=== PATIENT | female | born 1995 | race Asian ===

== ENCOUNTER 2018-09-10 15:16 | Inpatient (IN) ==
[2018-09-10] MEDS ORDERED: BUTORPHANOL 1 MG/ML VIAL IV PRN (15:58)
[2018-09-10] MEDS ORDERED: ONDANSETRON 4 MG/2 ML VIAL IV PRN (15:58)
[2018-09-10] MEDS ORDERED: MEPERIDINE 25 MG/1 ML VIAL IV PRN (15:58)
[2018-09-10] MEDS ORDERED: DINOPROSTONE VAG GEL 10 MG SYRINGE VAG ONE (16:01)
[2018-09-10] MEDS: LACTATED RINGERS 1,000 ML IV SCH ×2 (16:30→22:22)
[2018-09-10 16:47] LABS: Basophils % 0.4 % (0.0-0.8); Eosinophils # 0.1 10*3/uL (0.0-0.87); Eosinophils % 1.1 % (0.00-10.9); Hematocrit 37.6 VOL% (35.7-47.0); Hemoglobin 11.8 GM/DL (12.0-16.0); Immature Granulocytes % 0.5 %; Immature Granulocytes Absolute 0.04 #; Lymphocytes # 1.2 10*3/uL (1.4-4.0); Lymphocytes % 14.7 % (21.3-54.2); Mean Corpuscular HGB Conc 31.4 GM/DL (32-36); Mean Corpuscular Volume 93.8 FL (87-102); Mean Platelet Volume 11.1 FL (9.6-12.0); Monocytes % 9.9 % (1.7-12.7); Neutrophils % 73.4 % (38.7-73.9); Platelet Count 191 T/CUMM (130-400); Red Blood Count 4.01 MC/CUMM (3.8-5.5); Red Cell Distribution Width 12.3 % (9.3-17.3); White Blood Count 8.1 T/CUMM (4-12)
[2018-09-10 17:08] LABS: Alanine Aminotransferase 16 U/L (13-56); Albumin 2.5 G/DL (3.4-5.0); Alkaline Phosphatase 215 U/L (45-117); Aspartate Amino Transferase 11 U/L (0-37); Bilirubin,Total < 0.39 MG/DL (0.2-1.0); Blood Urea Nitrogen 9 MG/DL (7-18); Calcium 8.2 MG/DL (8.5-10.1); Glucose 71 MG/DL (74-106); Total Protein 6.7 G/DL (6.4-8.3)
[2018-09-10 17:09] LABS: Osmolality,Calculated 271.7 MOS/KG (273-304); Uric Acid 3.7 MG/DL (2.6-6.0)
[2018-09-11] MEDS ORDERED: AMPICILLIN INJ 2,000 MG in SODIUM CHLORIDE 0.9% 100 ML IV ONE (00:01)
[2018-09-11] MEDS ORDERED: OXYTOCIN/LR 20 UNIT/1,000 ML BAG IV SCH ×2 (01:00→02:00)
[2018-09-11] MEDS ORDERED: AMPICILLIN INJ 1,000 MG in SODIUM CHLORIDE 0.9% 100 ML IV SCH (04:00)
[2018-09-11] MEDS ORDERED: CITRIC ACID/SODIUM CITRATE 30 ML UDCUP PO ONE (07:08)
[2018-09-11] MEDS ORDERED: PROMETHAZINE 25 MG/1 ML VIAL IM ONE (07:08)
[2018-09-11] MEDS ORDERED: ePHEDrine 50 MG/ML AMP IV PRN (07:08)
[2018-09-11] MEDS ORDERED: hydrOXYzine HCL 25 MG/1 ML VIAL IM PRN (07:08)
[2018-09-11] MEDS ORDERED: NALOXONE 0.4 MG/ML VIAL IV PRN (07:08)
[2018-09-11] MEDS ORDERED: FAMOTIDINE 20 MG/2 ML VIAL IV ONE (07:08)
[2018-09-11] MEDS ORDERED: diphenhydrAMINE 50 MG/1 ML VIAL IV PRN (07:08)
[2018-09-11] MEDS ORDERED: fentaNYL 2 MCG/ROPIV 0.2% EPID 100 ML EPIDURAL SCH (07:30)
[2018-09-11] MEDS ORDERED: miSOPROStol 200 MCG TABLET ONE (07:56)
[2018-09-11] MEDS ORDERED: TRANEXAMIC ACID 1,000 MG/10 ML VIAL ONE (07:56)
[2018-09-11] MEDS ORDERED: OXYTOCIN/LR 20 UNIT/1,000 ML BAG IV ONE (07:56)
[2018-09-11] MEDS ORDERED: CARBOPROST TROMETHAMINE 250 MCG/ML AMP IM ONE (07:57)
[2018-09-11] MEDS ORDERED: METHYLERGONOVINE 0.2 MG/1 ML AMP ONE (07:57)
[2018-09-11 09:05] LABS: Cord Venous Blood HCO3 21.3 MMOL/L; Cord Venous Blood PCO2 43.8 MMHG; Cord Venous Blood PO2 32.7 MMHG
[2018-09-11] MEDS ORDERED: BISACODYL 10 MG SUPP RECTAL PRN (13:06)
[2018-09-11] MEDS ORDERED: HYDROCORTISONE 2.5% RECTAL CREAM 30 GM TUBE TOP PRN (13:06)
[2018-09-11] MEDS ORDERED: ACETAMINOPHEN/CODEINE 300-30 MG TABLET PO PRN (13:06)
[2018-09-11] MEDS ORDERED: BENZOCAINE 20%/MENTHOL 0.5% SPRAY 56 GM CAN TOP PRN (13:06)
[2018-09-11] MEDS ORDERED: oxyCODONE/ACETAMINOPHEN 5-325 MG TABLET PO PRN ×2 (13:06)
[2018-09-11] MEDS ORDERED: RHO(D) IMMUNE GLOBULIN 300 MCG SYRINGE IM ONE (13:06)
[2018-09-11] MEDS ORDERED: WITCH HAZEL PADS 100/JAR TOP PRN (13:06)
[2018-09-11] MEDS ORDERED: MEASLES/MUMPS/RUBELLA VACCINE 0.5 ML VIAL SUBCUT ONE (13:06)
[2018-09-11] MEDS ORDERED: LANOLIN 50% CREAM 0.3 OZ TUBE TOP PRN (13:06)
[2018-09-11] MEDS ORDERED: DIPH/TET/ACEL PERT BOOSTER VACCINE 0.5 ML VIAL IM ONE (13:06)
[2018-09-11] MEDS ORDERED: ACETAMINOPHEN 325 MG TABLET PO PRN (13:06)
[2018-09-11] MEDS: IBUPROFEN 800 MG TABLET PO PRN (16:14)
[2018-09-11] MEDS: DOCUSATE SODIUM 100 MG CAPSULE PO SCH (20:39)
[2018-09-12 05:32] LABS: Basophils % 0.2 % (0.0-0.8); Eosinophils # 0.1 10*3/uL (0.0-0.87); Eosinophils % 0.5 % (0.00-10.9); Hematocrit 31.4 VOL% (35.7-47.0); Hemoglobin 9.9 GM/DL (12.0-16.0); Immature Granulocytes % 0.4 %; Immature Granulocytes Absolute 0.06 #; Lymphocytes # 1.5 10*3/uL (1.4-4.0); Lymphocytes % 10.7 % (21.3-54.2); Mean Corpuscular HGB Conc 31.5 GM/DL (32-36); Mean Corpuscular Volume 93.5 FL (87-102); Mean Platelet Volume 11.4 FL (9.6-12.0); Monocytes % 6.4 % (1.7-12.7); Neutrophils % 81.8 % (38.7-73.9); Platelet Count 165 T/CUMM (130-400); Red Blood Count 3.36 MC/CUMM (3.8-5.5); Red Cell Distribution Width 12.4 % (9.3-17.3); White Blood Count 13.9 T/CUMM (4-12)
[2018-09-12] MEDS: DOCUSATE SODIUM 100 MG CAPSULE PO SCH ×2 (09:09→21:59)
[2018-09-12] MEDS: IBUPROFEN 800 MG TABLET PO PRN (21:59)
[2018-09-13] MEDS: DOCUSATE SODIUM 100 MG CAPSULE PO SCH (09:03)
[2018-09-13 09:43] VITALS: BP 106/62
== END 2018-09-13 11:55 | disposition home or self-care (01) | DRG 807 ==
LOC: N.LDOUT 15:16 → N.LD 15:22 → N.OB 09-11 11:07
PROVIDERS: ADMIT Obstetrics & Gynecology; ATTEND Obstetrics & Gynecology